=== PATIENT | male | born 1985 | race Caucasian/White ===

== ENCOUNTER 2022-12-19 11:10 | Emergency (ER) | payer BC, SELFPAY ==
--- NOTE | ~2022-12-19 | XR_ITS ---
EXAMINATION: XR ribs LT 2V w CXR 2V DATE: 12/19/2022 13:11 INDICATION: Left rib pain. Cough. Chest tightness. TECHNIQUE: Frontal and lateral views of the chest and 2 views on 3 radiographs of the left ribs were obtained. COMPARISON: None. FINDINGS: CHEST TWO VIEWS: There is no pneumonia, pleural effusion, or pneumothorax. The heart size is normal. Pneumomediastinum is noted. LEFT RIBS: There is no rib fracture. IMPRESSION: 1. Pneumomediastinum. 2. No rib fracture. Reviewed, dictated and finalized at location A.
[2022-12-19 11:48] VITALS: BP 134/90; PULSE 87; RESP 16; TEMP 36.5; O2SAT 100
--- NOTE | 2022-12-19 12:44 | ED.URI ---
HPI - URI/Sore Throat General Chief Complaint: Upper Respiratory Infection Stated Complaint: congestion,back pain Time Seen by Provider: 12/19/22 12:44 Source: patient and RN notes reviewed Mode of arrival: ambulatory Limitations: no limitations History of Present Illness HPI Narrative: 37-year-old male presented for complaint of cough, sinus congestion and drainage intermittently since 2021. Endorses coughing up yellow or green sputum. States today he believes he hurt the left lower ribs while coughing, and reports pain with walking as a result. He has completed several rounds of antibiotics and steroids since August. Currently on doxycycline, completed prednisone 4 days ago. Endorses symptoms improve for approximately 1 week and then return. He denies shortness of breath, nausea, vomiting, diarrhea, fevers or chills. MD elicited complaint: cough Related Data Home Medications Medication Instructions Recorded Confirmed doxycycline hyclate 100 mg capsule 100 mg PO DAILY 12/19/22 12/19/22 Allergies Allergy/AdvReac Type Severity Reaction Status Date / Time Penicillins Allergy Intermediate Nausea Verified 12/19/22 11:56 Review of Systems Review of Systems: CONSTITUTIONAL: Denies malaise, chills, sweats, fever EYES: Denies visual changes, redness, or discharge ENT: Reports rhinorrhea, congestion, sinus pain, denies otalgia, sore throat CARDIOVASCULAR: Denies chest pain, palpitations, edema RESPIRATORY: Reports cough GASTROINTESTINAL: Denies abdominal pain, nausea, vomiting, diarrhea SKIN: Denies rash or itching MUSCULOSKELETAL: Denies myalgia NEUROLOGIC: Denies headache PMFSH Past Medical History Medical History Annual physical exam Establishing care with new doctor, encounter for Family history of heart disease Screening for prostate cancer Surgical History Surgical History H/O hernia repair H/O knee surgery right knee Family History Family History Father , age 53 Hypertension Heart disease Mother Breast cancer Grandparent Cerebrovascular accident Heart disease Alzheimers disease Social History Social History Smoking status: Never smoker Tobacco type: smokeless tobacco Smokeless tobacco user: chewing tobacco Alcohol intake: current Substance use: never Living arrangements: with family Occupation/Education: occupation Additional occupation/education comments: manager licensing at [employer] Agree to blood products: Yes Exam Narrative: GENERAL: Ill-appearing, nontoxic no acute distress. HEAD: Normocephalic EYES: conjunctivae clear ENT: Mucous membranes moist. TM pearly mixon with dull light reflex bilaterally; no tragal tenderness. Oropharynx erythematous without lesions or exudate, no drooling, no hoarseness, no trismus, uvula midline. No tripod positioning, muffled voice, soft palate or pharyngeal wall bulging NECK: Supple. No lymphadenopathy CHEST: Right upper and lower expiratory wheezing; no respiratory distress, speaks in full sentences. Left posterior lower ribs tender with palpation. HEART: Regular rate and rhythm. No murmur heard. SKIN: Warm, dry, no rash. NEURO: Alert and oriented x3. Ambulates with steady gait. Course Course Emergency Course: Patient is aware of diagnosis, understands and agrees to treatment plan. Anticipatory guidance given. Portions of this record may have been created with voice recognition software Level of Care: Express Care Visit Vital Signs Vital signs: Vital Signs Temperature 97.7 F 12/19/22 11:48 Pulse Rate 87 12/19/22 11:48 Respiratory Rate 16 12/19/22 11:48 Blood Pressure 134/90 12/19/22 11:48 Pulse Oximetry 100 12/19/22 11:48 Oxygen Delivery Room Air
== END 2022-12-19 13:57 | disposition short-term general hospital (02) ==
PROVIDERS: Emergency Provider Nurse Practitioner Family
DX: J98.2 Interstitial emphysema (principal); F17.220 Nicotine dependence, chewing tobacco, uncomplicated
CPT/HCPCS: 71046; 71100; 99213; G0463